=== PATIENT | female | born 1995 | race Asian ===

== ENCOUNTER 2017-11-16 11:23 | Inpatient (IN) | payer OTHER ==
--- NOTE | 2017-11-16 11:44 | PD ---
HPI Chief Complaint: Psychiatric Symptoms Time Seen by Provider: 11:39 Travel History International Travel<30 days: No Contact w/Intl Traveler<30days: No History of Present Illness HPI 22-year-old female presents to the ED under Thomas act for psychiatric evaluation. On presentation the patient states that she feels as if she is 4 or 5 months . She states that she has been lactating. She states that she feels as if her vagina is expanding. She is unsure of her last menstrual period. She states that she called EMS today because she wanted to be checked out. She states that when the police came she began to have thoughts of harming herself. She states that this is because "he has a gun." She denies suicidal or homicidal ideation. She endorses psychiatric history of bipolar. She states that she takes Risperdal injections monthly, last dose about a week ago. She states that she is currently on antibiotics for a dental infection. She denies fevers, chills, nausea, vomiting or other somatic complaints. She denies cigarette smoking, illicit drug use or alcohol use. [facility] Social History Tobacco Use: No Review of Systems Except as stated in HPI: all other systems reviewed are Neg Physical Exam Narrative GENERAL: Well-nourished, well-developed female in no acute distress. PSYCH: Delusional SKIN: Focused skin assessment warm/dry. HEAD: Normocephalic. EYES: No scleral icterus. No injection or drainage. NECK: Supple, trachea midline. No JVD or lymphadenopathy. CARDIOVASCULAR: Regular rate and rhythm without murmurs, gallops, or rubs. RESPIRATORY: Breath sounds clear and equal bilaterally. No accessory muscle use. GASTROINTESTINAL: Abdomen soft, non-tender, nondistended. Active bowel sounds. MUSCULOSKELETAL: No cyanosis, or edema. Moves easily from standing to sitting to lying down. BACK: Nontender without obvious deformity. No CVA tenderness. Data Data Last Documented VS Vital Signs Date Time Temp Pulse Resp B/P (MAP) Pulse Ox O2 Delivery O2 Flow Rate FiO2 11/16/17 12:01 98.5 98 16 110/61 (77) 99 Orders Orders Complete Blood Count With Diff (11/16/17 11:31) Comprehensive Metabolic Panel (11/16/17 11:31) Thyroid Stimulating Hormone (11/16/17 11:31) Urinalysis - C+S If Indicated (11/16/17 11:31) Psych Screen (11/16/17 11:31) Drug Screen, Random Urine (11/16/17 11:31) Alcohol (Ethanol) (11/16/17 11:31) Ed Urine Pregnancytest Poc (11/16/17 11:31) Risperidone (11/16/17 12:34) Labs Laboratory Tests Test 11/16/17 11:36 White Blood Count 4.9 TH/MM3 Red Blood Count 4.90 MIL/MM3 Hemoglobin 11.9 GM/DL Hematocrit 37.5 % Mean Corpuscular Volume 76.4 FL Mean Corpuscular Hemoglobin 24.2 PG Mean Corpuscular Hemoglobin Concent 31.7 % Red Cell Distribution Width 13.9 % Platelet Count 226 TH/MM3 Mean Platelet Volume 7.7 FL Neutrophils (%) (Auto) 46.9 % Lymphocytes (%) (Auto) 35.7 % Monocytes (%) (Auto) 13.9 % Eosinophils (%) (Auto) 2.6 % Basophils (%) (Auto) 0.9 % Neutrophils # (Auto) 2.3 TH/MM3 Lymphocytes # (Auto) 1.8 TH/MM3 Monocytes # (Auto) 0.7 TH/MM3 Eosinophils # (Auto) 0.1 TH/MM3 Basophils # (Auto) 0.0 TH/MM3 CBC Comment DIFF FINAL Differential Comment Urine Color YELLOW Urine Turbidity CLEAR Urine pH 6.0 Urine Specific [place] 1.034 Urine Protein TRACE mg/dL Urine Glucose (UA) NEG mg/dL Urine Ketones NEG mg/dL Urine Occult Blood NEG Urine Nitrite NEG Urine Bilirubin NEG Urine Urobilinogen 2.0 MG/DL Urine Leukocyte Esterase NEG Urine RBC LESS THAN 1 /hpf Urine WBC 2 /hpf Urine Squamous Epithelial Cells 13 /hpf Urine Hyaline Casts 2 /lpf Urine Mucus MANY /lpf Microscopic Urinalysis Comment CULT NOT INDICATED Blood Urea Nitrogen 14 MG/DL Creatinine 0.89 MG/DL Random Glucose 85 MG/DL Total Protein 7.5 GM/DL Albumin 3.8 GM/DL Calcium Level 8.5 MG/DL Alkaline Phosphatase 57 U/L Aspartate Amino Transf (AST/SGOT) 18 U/L Alanine Aminotransferase (ALT/SGPT) 17 U/L Total Bilirubin 0.4 MG/DL Sodium Level 139 MEQ/L Potassium Level 4.0 MEQ/L Chloride Level 107 MEQ/L Carbon Dioxide Level 24.0 MEQ/L Anion Gap 8 MEQ/L Estimat Glomerular Filtration Rate 79 ML/MIN Thyroid Stimulating Hormone 3rd Gen 1.510 uIU/ML Urine Opiates Screen NEG Urine Barbiturates Screen NEG Urine Amphetamines Screen NEG Urine Benzodiazepines Screen NEG Urine Cocaine Screen NEG Urine Cannabinoids Screen NEG Ethyl Alcohol Level LESS THAN 3 MG/DL MDM Medical Decision Making Medical Screen Exam Complete: Yes Emergency Medical Condition: Yes Differential Diagnosis Pseudocyesis versus Adjustment disorder versus anxiety versus bipolar versus depression versus dementia versus electrolyte disorder versus malingering versus mood disorder versus ODD versus psychosis versus PTSD versus schizophrenia versus schizoaffective disorder versus substance-induced mood disorder versus other Narrative Course 22-year-old female presents to the ED under Thomas act for psychiatric evaluation. Patient is delusional, thinks that she is 4 or 5 months . Also states that when the police came to respond to her call she began to think of harming herself "because he has a gun." Physical exam is unremarkable, no evidence of noted. Bedside UPT: negative. No concerning abnormalities of the CBC, CMP, UA. Tox screen negative. Patient is medically cleared for psychiatric evaluation. Diagnosis Primary Impression: Medical clearance for psychiatric admission Myrtle Miller Nov 16, 2017 11:44
[2017-11-16 12:01] VITALS: BP 110/61; PULSE 98; RESP 16; TEMP 98.5; O2SAT 99
[2017-11-16 12:54] LABS: BILIRUBIN, URINE NEG (NEG); BLOOD, URINE NEG (NEG); GLUCOSE,URINE NEG (NEG); HYALINE CAST, URINE 2 /lpf (RARE); KETONE, URINE NEG (NEG); MUCUS URINE MANY /lpf (OCC); NITRITE,URINE NEG (NEG); SQUAMOUS EPITHELIAL CELL URINE 13 /hpf (0-5); URINE COLOR YELLOW (YELLW/STRAW); URINE LEUKOCYTE ESTERASE NEG (NEG)
[2017-11-16 12:57] LABS: AUTOMATED NEUTROPHIL # 2.3 TH/MM3 (1.8-7.7); BASOPHIL % 0.9 % (0.0-2.0); EOSINOPHIL # 0.1 TH/MM3 (0-0.4); EOSINOPHIL % 2.6 % (0.0-4.0); HEMATOCRIT 37.5 % (35.0-46.0); HEMOGLOBIN 11.9 GM/DL (11.6-15.3); LYMPH % 35.7 % (9.0-44.0); LYMPHOCYTE # 1.8 TH/MM3 (1.0-4.8); MEAN CELL VOLUME 76.4 FL (80.0-100.0); MEAN CORPUSCULAR HEMOGLOBIN 24.2 PG (27.0-34.0); MEAN CORPUSCULAR HGB CONC 31.7 % (32.0-36.0); MEAN PLATELET VOLUME 7.7 FL (7.0-11.0); MONO % 13.9 % (0.0-8.0); MONOCYTE # 0.7 TH/MM3 (0-0.9); NEUT % 46.9 % (16.0-70.0); PLATELET COUNT 226 TH/MM3 (150-450); RED CELL DISTRIBUTION WIDTH 13.9 % (11.6-17.2); WHITE BLOOD COUNT 4.9 TH/MM3 (4.0-11.0)
[2017-11-16 13:11] LABS: ALBUMIN 3.8 GM/DL (3.4-5.0); AST (GOT) 18 U/L (15-37); BLOOD UREA NITROGEN 14 MG/DL (7-18); CALCIUM 8.5 MG/DL (8.5-10.1); CHLORIDE 107 MEQ/L (98-107); CREATININE 0.89 MG/DL (0.50-1.00); GLOMERULAR FILTRATION RATE 79 ML/MIN (>89); GLUCOSE,RANDOM 85 MG/DL (74-106); SODIUM (NA) 139 MEQ/L (136-145)
[2017-11-16 13:12] LABS: ALT (GPT) 17 U/L (10-53)
[2017-11-16 13:22] LABS: ALKALINE PHOSPHATASE 57 U/L (45-117); TOTAL BILIRUBIN ADULT 0.4 MG/DL (0.2-1.0); TOTAL PROTEIN 7.5 GM/DL (6.4-8.2)
[2017-11-16 14:00] VITALS: BP 114/67; PULSE 72; RESP 18; TEMP 98.2; O2SAT 100
[2017-11-16 19:20] VITALS: BP 111/76; PULSE 90; RESP 18
[2017-11-17 00:01] VITALS: BP 122/57; PULSE 84; RESP 18; TEMP 98.4; O2SAT 97
[2017-11-17] MEDS ORDERED: ALUMINUM/MAGNESIUM/SIMETH 30 ML CUP PO PRN (03:30)
[2017-11-17] MEDS ORDERED: LORazepam 1 MG TAB PO PRN (03:30)
[2017-11-17] MEDS ORDERED: MAGNESIUM HYDROXIDE SUSP 30 ML CUP PO PRN (03:30)
[2017-11-17] MEDS ORDERED: ACETAMINOPHEN 325 MG TAB PO PRN (03:30)
[2017-11-17] MEDS ORDERED: LORazepam 2 MG/ML VIAL IM PRN (03:30)
[2017-11-17 06:31] VITALS: BP 106/65; PULSE 108; RESP 16; TEMP 97.7; O2SAT 98
--- NOTE | 2017-11-17 14:50 | EKG ---
Date Performed: 11/17/2017 Time Performed: 13:27:52 PTAGE: 22 years EKG: Sinus rhythm BORDERLINE RIGHT AXIS DEVIATION BORDERLINE ECG NO PREVIOUS TRACING DOCTOR: Rui Mattson Interpretating Date/Time 11/17/2017 14:49:27
[2017-11-17] MEDS ORDERED: diphenhydrAMINE HCL 50 MG CAP PO PRN (15:30)
[2017-11-17 16:50] VITALS: BP 133/80; PULSE 105; RESP 18; TEMP 97.6; O2SAT 98
--- NOTE | 2017-11-17 16:54 | HHI.HP ---
Provisional Diagnosis Admission Date Nov 16, 2017 at 22:05 [place] I. Bipolar disorder Certification of Person's Competence To Provide Express and Informed Consent I have personally examined Leigh Farris , a person being served at [facility] on, Nov 17, 2017 16:53. Express and informed consent means consent voluntarily given in writing, by a competent person, after sufficient explanation and disclosure of the subject matter involved to enable the person to make a knowing and willful decision without any element of force, fraud, deceit, duress, or other form of constraint or coercion. This person is 18 years of age or older, is not now known to be incompetent to consent to treatment with a guardian advocate, and does not have a health care surrogate or proxy currently making medical treatment decisions. I have found this person to be one of the following: [xxx] Competent to provide express and informed consent, as defined above, for voluntary admission to this facility and is competent to provide express and informed consent for treatment. He/she has the consistent capacity to make well reasoned, willful, and knowing decisions concerning his or her medical or mental health treatment. The person fully and consistently understands the purpose of the admission for examination/placement and is fully capable of personally exercising all rights assured under [place] [] Incompetent to provide express and informed consent to voluntary admission, and this is incompetent to provide express and informed consent to treatment. The person must be transferred to involuntary status and a petition for a guardian advocate filed with the Circuit Court. [] Refusing to provide express and informed consent to voluntary admission but is competent to provide express and informed consent for treatment. The person must be discharged or transferred to involuntary status. Form shall be completed within 24 hours of a person's arrival at the receiving facility and filed in the clinical record of each person: 1. Admitted on a voluntary basis 2. Permitted to provide express and informed consent to his/her own treatment 3. Allowed to transfer from involuntary to voluntary status 4. Prior to permitting a person to consent to his or her own treatment after having been previously found incompetent to consent to treatment. History of Present Illness Capacity: Has Capacity HPI Patient is a 22-year-old woman, single, has 1 daughter, domiciled with parents, siblings and her daughter, with a past psychiatric history of bipolar disorder, 2 previous psychiatric admissions both in 2017, no previous suicide attempts or self-injurious behavior, with no significant substance with past medical history was brought into the ED after patient had called 911 stating that she has 4-5 months , is lactating and that her vagina is expanding upon arrival of the police had noted patient to endorse suicidal ideation was patient was put under Thomas act and subsequently admitted to the inpatient psychiatry unit for further evaluation and management. Patient was found sitting in hospital bed noted B, cooperative. During interview patient appears to have some thought blocking but able to answer adequately to questioning. Patient mentions that recently she had recently had relationship with the father of her child and last year but had resumed his relationship and now states "I think I am 5 months ". When questioned about missed menses patient states she has not missed her menstrual cycle for the past couple of months. Patient mentions having had galactorrhea since yesterday had called for an ambulance but instead police arrived and had stated "I need them ". Although Thomas act states patient had endorsed suicidal ideation patient denies at this time. Patient states having had been receiving Risperdal long- acting injectable recently but that she had been receiving it monthly. Patient this time denies any SI, HI, perception disturbances. Collateral information obtained from patient's father, Henna Tep , states that patient had called the police in the past stating that she had been and this is the second time, first time being in September 2016. He reports that patient recently had been receiving long-acting injectables of risperidone but had missed her appointment in late October and received her treatment 2-3 weeks after her due date. He mentions that patient recently received her last injection on 11/12/17. He denies having noticed any bizarre behavior from the patient and denies having noted any behavior similar to her last admission where she had been disorganized and required psychiatric stabilization in 2017. Family psychiatric history: Aunt committed suicide (probable) Past psychiatric history: Previous psychiatric diagnoses of bipolar disorder, 2 previous psychiatric admissions both in 2006. Patient reports having outpatient follow-up at [facility] with Dr. Champagne last seen 1 week ago. Patient reports being treated with Risperdal Consta on a monthly basis. Dose unspecified. Substance use history: Denies Past medical history: Denies Allergies: NKDA Social history: Single, has 1 daughter who is 2 years old, domiciled with parents, siblings and daughter. Collateral contact his father,Henna Tep . Review of Systems Except as stated in HPI: all other systems reviewed are Neg Past Psych History Psychological trauma history denies Violence risk - others (6 mos) low Violence risk - self (6 mos) low Substance Abuse History Drugs/Alcohol past 12 months denies Past Family Social History Coded Allergies: No Known Drug Allergies (Verified Allergy, Unknown, 11/16/17) Per pt & Ralph RN, [facility] [phone] Unable to Obtain Active Prescriptions or Reported Meds Current Medications Medications (Trade) Dose Ordered Sig/Leydi Route Start Time Stop Time Status Last Admin (Ativan) 1 mg Q6H PRN PO 11/17/17 03:30 Future Hold (Ativan Inj) 1 mg Q6H PRN IM 11/17/17 03:30 Future Hold (Tylenol) 650 mg Q4H PRN PO 11/17/17 03:30 (Milk Of Magnesia Liq) 30 ml DAILY PRN PO 11/17/17 03:30 (Mag-Al Plus Susp Liq) 30 ml Q6H PRN PO 11/17/17 03:30 (Benadryl) 50 mg HS PRN PO 11/17/17 15:30 Family Psych History Aunt with probable suicide Social History Single, has 1 daughter who is 2 years old, domiciled with parents, siblings and daughter. Collateral contact his father,Henna Tep [phone]. Patient's Strengths (min. 2) verbal and communicative Physical Exam Patient not noted to be acute distress, no gross motor of maladies, no signs of tremor or EPS, no psychomotor agitation or retardation. Vital Signs Vital Signs Date Time Temp Pulse Resp B/P (MAP) Pulse Ox O2 Delivery O2 Flow Rate FiO2 11/17/17 16:50 97.6 105 18 133/80 (97) 98 11/16/17 19:20 Room Air Lab Results Test 11/16/17 21:29 Mental Status Examination Appearance: Appropriate Consciousness: Alert Orientation: Person, Place, Date/Time Motor Activity: Normal gait Speech: Unremarkable Language: Adequate Fund of Knowledge: Inadequate Attention and Concentration: Adequate Memory: Unremarkable Mood: Appropriate Affect: Anxious Thought Process & Associations: Linear Thought Content: Thought blocking Hallucination Type: None Delusion Type: Somatic Suicidal Ideation: No Suicidal Plan: No Suicidal Intention: No Homicidal Ideation: No Homicidal Plan: No Homicidal Intention: No Insight: Fair Judgment: Impulsive Assessment & Plan Problem List: (1) Bipolar disorder ICD Codes: F31.9 - Bipolar disorder, unspecified Assessment & Plan Estimated LOS: 3-5 days. Patient is a 22-year-old woman who carries diagnosis of bipolar disorder act due to endorsing believing she has 4-5 months , noticed to be lactating and had endorsed to police wanting an and made statements being suicidal although patient denies this at this time. Patient reported having consistent menses, has negative urine test, galactorrhea likely from risperidone. Brain CT ordered to rule out pituitary tumor. Prolactin level pending. Will consider switching patient over to alternative SHAIKH due to likely galactorrhea from risperidone, such as paliperidone or fluphenazine. Social work evaluation for psychosocial assessment. Continue to monitor with behavior. Collateral formation pending from outpatient provider as well as to conciliate recent medication dosages. Discharge planning in progress. Discharge Planning Return back to residence Derek Ramos MD Nov 17, 2017 16:54
--- NOTE | 2017-11-17 18:54 | RADRPT ---
EXAM DATE/TIME: 11/17/2017 18:15 [place] COMPARISON: No previous studies available for comparison. INDICATIONS : Psychosis. RADIATION DOSE: 56.77 CTDIvol (mGy) MEDICAL HISTORY : None SURGICAL HISTORY : None. ENCOUNTER: Initial ACUITY: 1 day PAIN SCALE: 0/10 LOCATION: cranial TECHNIQUE: Multiple contiguous axial images were obtained of the head. Using automated exposure control and adj ustment of the mA and/or kV according to patient size, radiation dose was kept as low as reasonably a chievable to obtain optimal diagnostic quality images. DICOM format image data is available electro nically for review and comparison. FINDINGS: CEREBRUM: The ventricles are normal for age. No evidence of midline shift, mass lesion, hemorrhage or acute in farction. No extra-axial fluid collections are seen. POSTERIOR FOSSA: The cerebellum and brainstem are intact. The 4th ventricle is midline. The cerebellopontine angle i s unremarkable. EXTRACRANIAL: The visualized portion of the orbits is intact. SKULL: The calvaria is intact. No evidence of skull fracture. CONCLUSION: Normal examination for a patient of this age. Skinny Cristina MD on November 17, 2017 at 18:51 Board Certified Radiologist. This report was verified electronically.
[2017-11-18 06:00] VITALS: BP 105/64; PULSE 97; RESP 16; TEMP 98.2; O2SAT 98
[2017-11-18 08:45] LABS: BICARBONATE 28.1 MEQ/L (21.0-32.0); BLOOD UREA NITROGEN 16 MG/DL (7-18); CHLORIDE 106 MEQ/L (98-107); GLOMERULAR FILTRATION RATE 89 ML/MIN (>89); GLUCOSE,RANDOM 81 MG/DL (74-106); SODIUM (NA) 141 MEQ/L (136-145)
[2017-11-18 08:46] LABS: CHOLESTEROL 150 MG/DL (120-200); TRIGLYCERIDES 64 MG/DL (42-150)
[2017-11-18 08:48] LABS: CHOLESTEROL/ HDL RATIO 2.02 RATIO; HDL CHOLESTEROL 74.1 MG/DL (40.0-60.0); LDL CHOLESTEROL 63 MG/DL (0-99)
[2017-11-18 17:28] LABS: HEMOGLOBIN A1C 5.2 % (4.3-6.0)
--- NOTE | 2017-11-18 17:30 | PD.CONS ---
HPI Service [facility] Hospitalists Consult Requested By Psychiatric service Reason for Consult Galactorrhea Primary Care Physician No Primary Care Physician Diagnoses: History of Present Illness This is a 22yo female with PMHX significant for bipolar disorder admitted to inpatient psychiatric unit under Thomas Act due to endorsing suicidal ideation. Hospitalist services have been consulted for evaluation and management of galactorrhea. She has been on Risperdal Consta injections monthly. Patient seen and examined. She denies any acute complaints. She endorses from both breast with manipulation but states it is lessening. She has one daughter who is 2 years old but she does not breast feed. She denies any fever , chills, headache, chest pain, shortness of breath, nausea, vomiting, abdominal pain, dysuria, hematuria or diarrhea. She does endorse occasional dizziness upon standing but denies every passing out or falling. Review of Systems Except as stated in HPI: all other systems reviewed are Neg Past Family Social History Allergies: Coded Allergies: No Known Drug Allergies (Verified Allergy, Unknown, 11/16/17) Per pt & Ralph, RN, [facility] [phone] Past Medical History Bipolar disorder Past Surgical History None Reported Medications Risperidone injections monthly Active Ordered Medications Current Medications Medications (Trade) Dose Ordered Sig/Leydi Route Start Time Stop Time Status Last Admin (Ativan) 1 mg Q6H PRN PO 11/17/17 03:30 Future hold (Ativan Inj) 1 mg Q6H PRN IM 11/17/17 03:30 Future hold (Tylenol) 650 mg Q4H PRN PO 11/17/17 03:30 (Milk Of Magnesia Liq) 30 ml DAILY PRN PO 11/17/17 03:30 (Mag-Al Plus Susp Liq) 30 ml Q6H PRN PO 11/17/17 03:30 (Benadryl) 50 mg HS PRN PO 11/17/17 15:30 (Abilify) 5 mg HS PO 11/18/17 21:00 Family History Patient denies any significant FMHX. No CAD/CVA/DM. Social History Patient denies any tobacco use. She reports occasional EtOH use and last drank one month ago. She denies any illicit drug use. Physical Exam Vital Signs Vital Signs Date Time Temp Pulse Resp B/P (MAP) Pulse Ox O2 Delivery O2 Flow Rate FiO2 11/18/17 06:00 98.2 97 16 105/64 (94) 98 Physical Exam GENERAL: This is a well-nourished, well-developed young female patient, in no apparent distress. Awake and alert. SKIN: No rashes, ecchymoses or lesions. Cool and dry. HEAD: Atraumatic. Normocephalic. No temporal or scalp tenderness. EYES: Pupils equal round and reactive. Extraocular motions intact. No scleral icterus. No injection or drainage. ENT: Nose without bleeding or purulent drainage. Throat without erythema, tonsillar hypertrophy or exudate. Uvula midline. Airway patent. NECK: Trachea midline. No lymphadenopathy. Supple, nontender, no meningeal signs. CARDIOVASCULAR: Regular rate and rhythm without murmurs, gallops, or rubs. RESPIRATORY: Clear to auscultation. Breath sounds equal bilaterally. No wheezes , rales, or rhonchi. GASTROINTESTINAL: Abdomen soft, non-tender, nondistended. No hepato-splenomegaly , or palpable masses. No guarding. MUSCULOSKELETAL: Extremities without clubbing, cyanosis, or edema. No joint tenderness, effusion, or edema noted. No calf tenderness. NEUROLOGICAL: Awake and alert. Cranial nerves II through XII grossly intact. Motor and sensory grossly within normal limits. No focal neurologic findings appreciated. Normal speech. PSYCHIATRIC: Calm and pleasant. Cooperative. Laboratory Laboratory Tests Test 11/18/17 07:25 Blood Urea Nitrogen 16 Creatinine 0.80 Random Glucose 81 Calcium Level 9.0 Sodium Level 141 Potassium Level 4.0 Chloride Level 106 Carbon Dioxide Level 28.1 Anion Gap 7 Estimat Glomerular Filtration Rate 89 Triglycerides Level 64 Cholesterol Level 150 LDL Cholesterol 63 HDL Cholesterol 74.1 Cholesterol/HDL Ratio 2.02 Result Diagram: 11/16/17 1136 11/18/17 0725 Imaging Last Impressions Head CT 11/17/17 0000 Signed Impressions: Service Date/Time: Friday, November 17, 2017 18:15 - CONCLUSION: Normal examination for a patient of this age. Skinny Cristina MD Assessment and Plan Assessment and Plan 22yo female with PMHX significant for bipolar disorder admitted to inpatient psychiatric unit under Thomas Act due to endorsing suicidal ideation. Hospitalist services have been consulted for evaluation and management of galactorrhea. Bipolar disorder -Management per psychiatric team Galactorrhea Hyperprolactinemia -prolactin level 341 -TSH 1.510 -suspect side effect from monthly risperidone injections -psychiatric team considering other med alternatives Dizziness -suspect 2/2 orthostatic BP drop -check orthostatic measurements -counseled patient on slow transitions DVT prophylaxis -patient is ambulatory Thank you very much for this consultation. Patient appears stable from hospitalist standpoint. [facility] will sign off. Please reconsult if needed. Discussed Condition With patient, GINNY Zhao, Jamia Whyte Nov 18, 2017 17:30
--- NOTE | 2017-11-18 17:36 | HHI.PYPN ---
Subjective Remarks Patient seen for follow-up, chart reviewed. Discussion with nursing staff reported that patient cooperative with no behavioral disturbances. Patient was found in day room calm and cooperative. She states that she is sleeping ok, no difficulty with eating or drinking, denies any mood symptoms but noted to be with some poverty of thought and thought blocking. Patient with negative brain CT, galactorrhea likely secondary to risperdal which was reviewed with patient. Patient noted to have some difficulty with comprehension of the explanation but was able to appear to comprehend after repeated explanation. Patient was seen by hospitalist and also considered galactorrhea secondary to risperdal. Patient reviewed the start of alternative medication, aripiprazole and B/R/A were reviewed with patient. Review of Systems Except as stated in HPI: all other systems reviewed are Neg Mental Status Examination Appearance: Appropriate Consciousness: Alert Orientation: Person, Place, Date/Time Motor Activity: Normal gait Speech: Unremarkable Language: Adequate Fund of Knowledge: Inadequate Attention and Concentration: Adequate Memory: Unremarkable Mood: Appropriate Affect: Anxious Thought Process & Associations: Other (some poverty of thought) Thought Content: Thought blocking Hallucination Type: None Delusion Type: Somatic Suicidal Ideation: No Suicidal Plan: No Suicidal Intention: No Homicidal Ideation: No Homicidal Plan: No Homicidal Intention: No Insight: Fair Judgment: Impulsive Results Labs labs reviewed Test 11/18/17 07:25 Blood Urea Nitrogen 16 MG/DL Creatinine 0.80 MG/DL Random Glucose 81 MG/DL Calcium Level 9.0 MG/DL Sodium Level 141 MEQ/L Potassium Level 4.0 MEQ/L Chloride Level 106 MEQ/L Carbon Dioxide Level 28.1 MEQ/L Anion Gap 7 MEQ/L Estimat Glomerular Filtration Rate 89 ML/MIN Triglycerides Level 64 MG/DL Cholesterol Level 150 MG/DL LDL Cholesterol 63 MG/DL HDL Cholesterol 74.1 MG/DL Cholesterol/HDL Ratio 2.02 RATIO Vitals/IOs Vital Signs Date Time Temp Pulse Resp B/P (MAP) Pulse Ox O2 Delivery O2 Flow Rate FiO2 11/18/17 06:00 98.2 97 16 105/64 (78) 98 11/16/17 19:20 Room Air Intake and Output 11/18/17 11/18/17 11/19/17 08:00 16:00 00:00 Intake Total 480 ml Balance 480 ml Assessment & Plan Problem List: (1) Bipolar disorder ICD Codes: F31.9 - Bipolar disorder, unspecified Assessment & Plan Patient noted with continued thought blocking and galactorrhea but reported to be lessening. Will start aripiprazole 5mg PO daily for mood stabilization. Prolactin level elevated, brain CT negative. Continue to monitor mood and behavior. Discharge planning in progress. Justification for Cont. Inpt. At risk for further decompensation at lower level of care. Discharge Planning Return back to residence when psychiatrically stable. Derek Ramos MD Nov 18, 2017 17:36
[2017-11-18 18:12] VITALS: BP 109/74; PULSE 102; RESP 16; TEMP 97.7; O2SAT 97
[2017-11-18] MEDS: ARIPiprazole 5 MG TAB PO SCH (21:00)
--- NOTE | 2017-11-19 11:12 | PD.TTN ---
Patient Problems 1. Discharge planning 2. Medication compliance 3. Knowledge deficit 4. Lack of coping skills Progress Toward Goals Provider Present: Dr. Henry Ramos Provider Input: 11/19/17 - Dr. Ramos has switched patient's medication from Risperdal to Abilify. Patient is thought blocking. Psychiatric Counselors Present: DARRYL Ta Psych Therapist Input: 11/19/17 - Counselor will contact patient's family for collateral information and to see if they have visited the patient and if they have noted any improvement. Group Spec/RT/OT/KEYS Present: CASEY Galicia Group Spec/RT/OT/KEYS Input: 11/19/17 - Patient has attended select groups since her admission. Discharge Plan SMA 11/19/17 - Patient will return to her parents home when stabilized. Documentation Scribe: DARRYL Ta Date Resolved: Nov 19, 2017 Jdui Rodriguez Nov 19, 2017 11:12
[2017-11-19 17:09] VITALS: BP 118/65; PULSE 78; RESP 18; TEMP 97.8; O2SAT 98
[2017-11-19] MEDS: ARIPiprazole 5 MG TAB PO SCH (20:39)
--- NOTE | 2017-11-19 21:17 | HHI.PYPN ---
Subjective Remarks Patient seen for follow up; chart reviewed. Discussion with nursing staff reported that the patient continues to state being at times. She was seen in day room, calm and cooperative, continues to have some thought blocking and difficulty with comprehension during interview. Patient states sleeping well , denies any suicidal or homicidal ideation. She mentions that she spoke with her mother over the phone but hadn't visited her. She states her mood as being "happy", denies being during interview but later stated to the nurse believing she was after interview. Review of Systems Except as stated in HPI: all other systems reviewed are Neg Mental Status Examination Appearance: Appropriate Consciousness: Alert Orientation: Person, Place, Date/Time Motor Activity: Normal gait Speech: Unremarkable Language: Adequate Fund of Knowledge: Inadequate Attention and Concentration: Adequate Memory: Unremarkable Mood: Appropriate Affect: Anxious Thought Process & Associations: Other (some poverty of thought) Thought Content: Thought blocking Hallucination Type: None Delusion Type: Somatic Suicidal Ideation: No Suicidal Plan: No Suicidal Intention: No Homicidal Ideation: No Homicidal Plan: No Homicidal Intention: No Insight: Fair Judgment: Impulsive Results Vitals/IOs Vital Signs Date Time Temp Pulse Resp B/P (MAP) Pulse Ox O2 Delivery O2 Flow Rate FiO2 11/19/17 17:09 97.8 78 18 118/65 (82) 98 11/16/17 19:20 Room Air Assessment & Plan Problem List: (1) Bipolar disorder ICD Codes: F31.9 - Bipolar disorder, unspecified Assessment & Plan Patient was started on Abilify yesterday but was not given the medication. Will be given the medication today and will continue to titrate as needed. Continue to monitor mood and behavior. Discharge planning in progress. Justification for Cont. Inpt. At risk for further decompensation at lower level of care. Derek Ramos MD Nov 19, 2017 21:17
--- NOTE | 2017-11-19 21:36 | EKG ---
Date Performed: 11/18/2017 Time Performed: 14:17:02 PTAGE: 22 years EKG: Sinus rhythm WITH SINUS ARRHYTHMIA NORMAL ECG PREVIOUS TRACING : 11/17/2017 13.27 Since the previous tracing, no significant change noted DOCTOR: Satnam Church Interpretating Date/Time 11/19/2017 21:34:43
[2017-11-20 05:36] VITALS: BP 112/67; PULSE 81; RESP 16; TEMP 97.6; O2SAT 98
[2017-11-20 11:54] LABS: OH-RISPERIDONE 30.1 ng/mL; RISPERIDONE LESS THAN 1.0 ng/mL
[2017-11-20] MEDS ORDERED: ARIP1TAB11 PO (12:07)
--- NOTE | 2017-11-20 17:22 | HHI.DS ---
Psychiatry Discharge Summary Inpatient Psychiatric care?: Yes Advance Directive: No Reason Not Provided: Due to Patient Condition Mental Health AdvanceDirective: No Health Care Proxy: No Admission Admission Date Nov 16, 2017 at 22:05 Admission Diagnosis: (1) Bipolar disorder ICD Code: F31.9 - Bipolar disorder, unspecified Brief History Patient is a 22-year-old woman, single, has 1 daughter, domiciled with parents, siblings and her daughter, with a past psychiatric history of bipolar disorder, 2 previous psychiatric admissions both in 2017, no previous suicide attempts or self-injurious behavior, with no significant substance with past medical history was brought into the ED after patient had called 911 stating that she has 4-5 months , is lactating and that her vagina is expanding upon arrival of the police had noted patient to endorse suicidal ideation was patient was put under Thomas act and subsequently admitted to the inpatient psychiatry unit for further evaluation and management. Patient was found sitting in hospital bed noted B, cooperative. During interview patient appears to have some thought blocking but able to answer adequately to questioning. Patient mentions that recently she had recently had relationship with the father of her child and last year but had resumed his relationship and now states "I think I am 5 months ". When questioned about missed menses patient states she has not missed her menstrual cycle for the past couple of months. Patient mentions having had galactorrhea since yesterday had called for an ambulance but instead police arrived and had stated "I need them ". Although Thomas act states patient had endorsed suicidal ideation patient denies at this time. Patient states having had been receiving Risperdal long- acting injectable recently but that she had been receiving it monthly. Patient this time denies any SI, HI, perception disturbances. Collateral information obtained from patient's father, Henna Tep , states that patient had called the police in the past stating that she had been and this is the second time, first time being in September 2016. He reports that patient recently had been receiving long-acting injectables of risperidone but had missed her appointment in late October and received her treatment 2-3 weeks after her due date. He mentions that patient recently received her last injection on 11/12/17. He denies having noticed any bizarre behavior from the patient and denies having noted any behavior similar to her last admission where she had been disorganized and required psychiatric stabilization in 2017. Family psychiatric history: Aunt committed suicide (probable) Past psychiatric history: Previous psychiatric diagnoses of bipolar disorder, 2 previous psychiatric admissions both in 2006. Patient reports having outpatient follow-up at [facility] with Dr. Champagne last seen 1 week ago. Patient reports being treated with Risperdal Consta on a monthly basis. Dose unspecified. Substance use history: Denies Past medical history: Denies Allergies: NKDA Social history: Single, has 1 daughter who is 2 years old, domiciled with parents, siblings and daughter. Collateral contact his father,Henna Tep . Tobacco Use In Past 30 Days: No Tobacco Past 30 Days Alcohol Use: Never Hospital Course Patient is a 22-year-old woman, single, has 1 daughter, domiciled with parents, siblings and her daughter, with a past psychiatric history of bipolar disorder, 2 previous psychiatric admissions both in 2016, no previous suicide attempts or self-injurious behavior, with no significant substance with past medical history was brought into the ED after patient had called 911 stating that she has 4-5 months , is lactating and that her vagina is expanding upon arrival of the police had noted patient to endorse suicidal ideation was patient was put under Thomas act and subsequently admitted to the inpatient psychiatry unit for further evaluation and management. Patient was found to have had elevated prolactin level and continued galactorrhea. Brain CT was found to have been normal study and galactorrhea likely secondary to use of risperidone. Patient was also noted to be disorganized along with thought blocking while thinking she was due to the noted galactorrhea. Patient was started on Abilify 5mg PO daily which she tolerated well. Patients insight improved during admission, no longer believing she was . Patient was cooperative with staff, had no behavioral dyscontrol, and participated in groups and activities. Upon discharge patient stated that she was feeling good, denied any psychotic symptoms, denied any SI, HI or delusions. Patient agreed to continue medication regimen and outpatient follow up for continuity of care. I have counseled the patient regarding warning signs for need to return to the psychiatric emergency room as part of a general safety plan. Patient advised to call 911 or go nearest ED in case of emergency. Patient agrees with plan. Results Blood Pressure 112 / 67 Vital Signs Date Time Temp Pulse Resp B/P (MAP) Pulse Ox O2 Delivery O2 Flow Rate FiO2 11/20/17 05:36 97.6 81 16 112/67 (82) 98 11/16/17 19:20 Room Air Laboratory Tests Test 11/18/17 07:25 HDL Cholesterol 74.1 MG/DL (40.0-60.0) Laboratory Results Test 11/18/17 07:25 Cholesterol Level 150 MG/DL (120-200) HDL Cholesterol 74.1 MG/DL (40.0-60.0) Hemoglobin A1c 5.2 % (4.3-6.0) LDL Cholesterol 63 MG/DL (0-99) Triglycerides Level 64 MG/DL (42-150) Summary of Procedures none Imaging Last Impressions Head CT 11/17/17 0000 Signed Impressions: Service Date/Time: Friday, November 17, 2017 18:15 - CONCLUSION: Normal examination for a patient of this age. Skinny Crisitna MD Pending results at discharge: No Medications # of Antipsychotic meds at D/C: 1 Approp Antipsych med options 1 - Minimum of three failed multiple trials of monotherapy. 2 - Documented plan to taper to monotherapy due to previous use of multiple meds OR cross-taper in progress at D/C. 3 - Documentation of augmentation of Clozapine. 4 - Justification other than those listed in allowable values 1-3, document here : Discharge Discharge Date: Nov 20, 2017 Discharge Diagnosis: (1) Bipolar disorder ICD Code: F31.9 - Bipolar disorder, unspecified Pt Condition on Discharge: Stable Discharge Disposition: Discharge Home Discharge Instructions Diet Instructions: As Tolerated, No Restrictions Activities you can perform: Regular-No Restrictions Scheduled Appointment: [facility] Appointment Time: 8 - 3 Discharge Time > 30 minutes Mental Status Examination Appearance: Appropriate Consciousness: Alert Orientation: Person, Place, Date/Time Motor Activity: Normal gait Speech: Unremarkable Language: Adequate Fund of Knowledge: Inadequate Attention and Concentration: Adequate Memory: Unremarkable Mood: Appropriate Affect: Appropriate Thought Process & Associations: Intact, Goal directed Thought Content: Appropriate Hallucination Type: None Delusion Type: None Suicidal Ideation: No Suicidal Plan: No Suicidal Intention: No Homicidal Ideation: No Homicidal Plan: No Homicidal Intention: No Insight: Fair Judgment: Impulsive Discharge/Advance Care Plan Health Problems: (1) Bipolar disorder Goals to promote your health * To prevent worsening of your condition and complications * To maintain your health at the optimal level Directions to meet your goals Take your medications as prescribed Follow your dietary instruction Follow activity as directed Keep your appointments as scheduled Take your immunizations and boosters as scheduled If your symptoms worsen call your PCP, if no PCP go to Urgent Care Center or Emergency Room For 03/03 questions related to your inpatient stay or results of tests pending at discharge, please contact Dr. Derek Ramos at Smoking is Dangerous to Your Health. Avoid second hand smoking Derek Ramos MD Nov 20, 2017 17:22
--- NOTE | 2017-11-21 15:59 | PD.TTN ---
Patient Problems 1. Discharge planning 2. Medication compliance 3. Knowledge deficit 4. Lack of coping skills Progress Toward Goals Provider Present: Dr. Henry Ramos Provider Input: 11/17/17 patient is new- she is in belief of being and appears delusional about this 11/19/17 - Dr. Ramos has switched patient's medication from Risperdal to Abilify. Patient is thought blocking. Psychiatric Counselors Present: Glenis De La Fuente LCSW, DARRYL Ta Psych Therapist Input: 11/17/17 patient is new today 11/19/17 - Counselor will contact patient's family for collateral information and to see if they have visited the patient and if they have noted any improvement. Group Spec/RT/OT/KEYS Present: CASEY Galicia Group Spec/RT/OT/KEYS Input: 11/17/17 patient is new 11/19/17 - Patient has attended select groups since her admission. Discharge Plan SMA 11/19/17 - Patient will return to her parents home when stabilized. Documentation Scribe: DARRYL Ta Date Resolved: Nov 19, 2017 Glenis De La Fuente LCSW Nov 21, 2017 15:59
== END 2017-11-20 14:55 | disposition home or self-care (01) | DRG 885 ==
LOC: NEPJ 11:23 → NEDA 22:05 → H260 11-17
PROVIDERS: ADMIT Student in an Organized Health Care Education/Training Program; ATTEND Student in an Organized Health Care Education/Training Program
DX: F31.9 Bipolar disorder, unspecified (principal); E22.1 Hyperprolactinemia; N64.3 Galactorrhea not associated with childbirth; R42 Dizziness and giddiness
CPT/HCPCS: 70450; 80048; 80053; 80061; 80307; 80342; 81001; 83036; 84146; 84443; 84702; 84703; 85025; 93005; 99285